=== PATIENT | male | born 1990 | race Caucasian/White ===

== ENCOUNTER 2017-08-31 19:22 | Observation (INO) ==
[2017-08-31 20:24] LABS: Bilirubin,Urine Negative (Negative); Blood,Urine Negative (Negative); Clarity,Urine Clear (Clear); Color,Urine Yellow (Yellow); Glucose,Urine (UA) Normal (Normal); Ketones,Urine Negative (Negative); Leukocyte Esterase,Urine Negative (Negative); Nitrite,Urine Negative (Negative); Protein,Urine Negative (Neg-Trace); Specific Gravity,Urine 1.013 (1.010-1.025); Urobilinogen,Urine Normal (Normal)
[2017-08-31 20:28] LABS: Basophils % 0.2 %; Hematocrit 43.6 % (37.5-50.1); Hemoglobin 14.9 g/dL (12.9-16.9); Immature Granulocytes % 0.3 % (0-4); Lymphocytes # 2.3 K/mcL (0.6-4.6); Lymphocytes % 16.6 %; Mean Corpuscular HGB Conc 34.2 g/dL (31.6-35.5); Mean Corpuscular Hemoglobin 28.1 pg (28.0-33.3); Mean Corpuscular Volume 82.3 fL (83.0-100.0); Mean Platelet Volume 9.9 fL (9.4-12.4); Monocytes # 0.9 K/mcL (0.0-1.3); Monocytes % 6.3 %; Neutrophils # 10.8 K/mcL (1.6-8.9); Platelet Count 225 K/mcL (140-400); Red Cell Distribution Width 12.6 % (11.5-14.5); Segmented Neutrophils % 76.6 %
[2017-08-31 20:42] LABS: Alanine Aminotransferase 81 Units/L (0-55); Albumin 4.6 g/dL (3.5-5.0); Albumin/Globulin Ratio 1.3 (1.1-2.2); Alkaline Phosphatase 49 Units/L (38-126); Aspartate Amino Transferase 68 Units/L (5-34); BUN/Creatinine Ratio 14 (6-26); Bilirubin,Direct 0.3 mg/dL (0.0-0.5); Bilirubin,Indirect 0.3 mg/dL (0.0-1.2); Bilirubin,Total 0.6 mg/dL (0.2-1.2); Blood Urea Nitrogen 11 mg/dL (8-26); Calcium 10.1 mg/dL (8.6-10.8); Carbon Dioxide 26 mEq/L (19-29); Chloride 103 mEq/L (98-109); Globulin 3.6 g/dL (2.4-3.5); Glucose 99 mg/dL (70-99); Lipase 10 Units/L (8-78); Osmolality,Calculated 285 (280-300); Potassium 4.2 mEq/L (3.5-4.5); Sodium 138 mEq/L (136-145); Total Protein 8.2 g/dL (6.0-8.3); eGFR For African Americans > 60 (> 60); eGFR For Non-African Americans > 60 (> 60)
--- NOTE | 2017-08-31 21:45 | Emergency Department Note ---
Disposition Clinical Impression: Hepatic steatosis Acute appendicitis Qualifiers: Acute appendicitis type: with localized peritonitis Qualified Code(s): K35.3 - Acute appendicitis with localized peritonitis Abdominal pain Qualifiers: Abdominal location: right lower quadrant Qualified Code(s): R10.31 - Right lower quadrant pain Disposition: Admitted As Inpatient Condition: Fair Time of Disposition: 01:59 Abdominal Pain HPI - General Chief Complaint: ED Abdominal Pain Stated Complaint: "Abd Pain/Sent from " Source: patient Nursing Notes Reviewed: Yes Vital Signs Reviewed: Yes - History of Present Illness HPI Narrative: Patient 27-year-old [place] male who complains of right lower quadrant abdominal pain that started 2 1 hours ago. Patient states the pain woke him from sleep. Patient states pain persisted at 6/10 sharp with radiation to umbilicus. Patient states he took a laxative earlier today and had several loose stools that are nonbloody. Patient states the pain continues to persist and is currently 2/10. Patient states his pain worsens when he touches abdomen. Patient admits anorexia, nausea without vomiting Patient admits to tobacco use but denies illicit drug use or alcohol use. Pain Scale: 8 - Related Data Home Medications Medication Instructions Recorded Confirmed No Known Home Drugs 08/31/17 08/31/17 Allergies Allergy/AdvReac Type Severity Reaction Status Date / Time No Known Allergies Allergy Verified 08/31/17 22:00 All systems ED: reviewed and negative except as stated. Review of Systems: As Per HPI Constitutional: Denies: fever, chills ENT ED: Denies: congestion Cardiovascular: Denies: chest pain, palpitations Respiratory: Denies: cough, dyspnea, wheezes Gastrointestinal: Reports: abdominal pain, nausea, diarrhea. Denies: vomiting Genitourinary: Denies: urgency, dysuria, frequency Musculoskeletal: Denies: back pain, neck pain Integumentary: Denies: rash Neurological: Denies: headache Psychiatric: Reports: anxiety Endocrine: Denies: fatigue Abdominal Pain PMH - Past Medical History Medical history: Reports: no medical history Male Surgical History: Reports: no surgical history Psychiatric history: Reports: no psych history - Social History Smoking status: Current some day smoker Alcohol use: Reports: none Drug use: Reports: none Physical Exam Vital Signs Temperature 98.2 F 08/31/17 20:01 Pulse Rate 88 08/31/17 20:01 Respiratory Rate 16 08/31/17 20:01 Blood Pressure 136/86 08/31/17 20:01 O2 Sat by Pulse Oximetry 97 08/31/17 20:01 Temperature 98.2 F 08/31/17 20:01 Pulse Rate 84 08/31/17 21:06 Respiratory Rate 16 08/31/17 21:06 Blood Pressure 147/98 08/31/17 21:06 O2 Sat by Pulse Oximetry 98 08/31/17 21:06 Oxygen Delivery Oxygen Delivery Room Air 27-year-old male who is alert and oriented 3 and does not appear to be in acute distress. Patient in bed trying to lay still. Patient is nondiaphoretic - General Limitations: no limitations General appearance: alert - Head Head exam: atraumatic, normocephalic - Eye Eye exam: Present: normal appearance - ENT ENT exam: normal exam, normal oropharynx, mucous membranes moist - Neck Neck exam: Present: normal inspection - Chest Chest inspection: Present: normal inspection, symmetric chest wall rise. Absent : tenderness, rash - Abdominal Exam Abdominal exam: Present: soft, tenderness, guarding, rebound, normal bowel sounds, tenderness at McBurney's Point. Absent: distention, rigidity - Extremities Exam Extremities exam: Present: normal inspection, full ROM, normal capillary refill. Absent: tenderness, pedal edema - Back Exam Back exam: Present: normal inspection, full ROM. Absent: tenderness, CVA tenderness (R), CVA tenderness (L) Course Vital Signs Temperature 98.2 F 08/31/17 20:01 Pulse Rate 88 08/31/17 20:01 Respiratory Rate 16 08/31/17 20:01 Blood Pressure 136/86 08/31/17 20:01 O2 Sat by Pulse Oximetry 97 08/31/17 20:01 Temperature 98.1 F 08/31/17 23:21 Pulse Rate 80 08/31/17 23:21 Respiratory Rate 15 08/31/17 23:21 Blood Pressure 133/77 08/31/17 23:21 O2 Sat by Pulse Oximetry 95 08/31/17 23:21 Oxygen Delivery Oxygen Delivery Room Air Abdominal Pain - MDM Narrative Medical decision making narrative: Patient presents with concerns for appendicitis with a positive Rovsing, right lower quadrant pain at McBurney's point, and rebound tenderness with guarding but has soft abdomen. CT abdomen and pelvis was ordered which shows Abdomen/Pelvis CT 08/31/17 21:11 IMPRESSION: Acute appendicitis. No definite findings of rupture. Trace free fluid in the pelvis, likely reactive. Hepatic steatosis. 3 mm nodule in the left lower lobe. In the absence of known primary malignancy, this is of doubtful clinical significance given the patient's age. Findings were discussed with Jacek Paige at 9:49 pm on 08/31/2017. D/ / Haseeb Ramirez MD / Haseeb Ramirez MD Interpreting Provider: Haseeb Ramirez MD Patient has elevated white count at 14.1 consulting surgery patient started on 2 g cefoxitin IV. Patient has mildly elevated LFTs in conjunction with hepatic steatosis. Dr. Patiño of Gen. surgery was consulted and is except the patient to his service. He recommends pain control but patient refuses any pain medication at this time. - Lab Data Lab results reviewed: Yes I reviewed the patient's lab results. Lab results narrative: Short CBC 08/31/17 Range/Units 20:18 WBC 14.1 H (4.3-11.1) K/mcL Hgb 14.9 (12.9-16.9) g/dL Hct 43.6 (37.5-50.1) % Plt Count 225 (140-400) K/mcL Neutrophils # 10.8 H (1.6-8.9) K/mcL BMP 08/31/17 Range/Units 20:18 Sodium 138 (136-145) mEq/L Potassium 4.2 (3.5-4.5) mEq/L Chloride 103 (98-109) mEq/L Carbon Dioxide 26 (19-29) mEq/L BUN 11 (8-26) mg/dL Creatinine 0.77 (0.72-1.25) mg/dL Glucose 99 (70-99) mg/dL Calcium 10.1 (8.6-10.8) mg/dL Liver Function 08/31/17 Range/Units 20:18 Total Bilirubin 0.6 (0.2-1.2) mg/dL Direct Bilirubin 0.3 (0.0-0.5) mg/dL AST 68 H (5-34) Units/L ALT 81 H (0-55) Units/L Alkaline Phosphatase 49 (38-126) Units/L Albumin 4.6 (3.5-5.0) g/dL Urine 08/31/17 Range/Units 19:31 Urine Color Yellow (Yellow) Urine Clarity Clear (Clear) Urine pH 6.0 (5.0-8.0) pH Units Ur Specific [place] 1.013 (1.010-1.025) Urine Protein Negative (Neg-Trace) mg/dL Urine Glucose (UA) Normal (Normal) mg/dL Result diagrams: 08/31/17 20:18 08/31/17 20:18 Lab Results 08/31/17 08/31/17 08/31/17 Range/Units 19:31 20:18 20:18 WBC 14.1 H (4.3-11.1) K/mcL RBC 5.30 (4.19-5.50) M/mcL Hgb 14.9 (12.9-16.9) g/dL Hct 43.6 (37.5-50.1) % MCV 82.3 L (83.0-100.0) fL MCH 28.1 (28.0-33.3) pg MCHC 34.2 (31.6-35.5) g/dL RDW 12.6 (11.5-14.5) % Plt Count 225 (140-400) K/mcL MPV 9.9 (9.4-12.4) fL Immature Gran % 0.3 (0-4) % Seg Neutrophils % 76.6 % Lymphocytes % 16.6 % Monocytes % 6.3 % Eosinophils % 0.0 % Basophils % 0.2 % Neutrophils # 10.8 H (1.6-8.9) K/mcL Lymphocytes # 2.3 (0.6-4.6) K/mcL Monocytes # 0.9 (0.0-1.3) K/mcL Eosinophils # 0.0 (0.0-0.6) K/mcL Basophils # 0.0 (0.0-0.2) K/mcL Sodium 138 (136-145) mEq/L Potassium 4.2 (3.5-4.5) mEq/L Chloride 103 (98-109) mEq/L Carbon Dioxide 26 (19-29) mEq/L BUN 11 (8-26) mg/dL Creatinine 0.77 (0.72-1.25) mg/dL Est GFR ( Amer) > 60 (> 60) Est GFR (Non-Af Amer) > 60 (> 60) BUN/Creatinine Ratio 14 (6-26) Glucose 99 (70-99) mg/dL Calculated Osmolality 285 (280-300) Calcium 10.1 (8.6-10.8) mg/dL Total Bilirubin 0.6 (0.2-1.2) mg/dL Direct Bilirubin 0.3 (0.0-0.5) mg/dL Indirect Bilirubin 0.3 (0.0-1.2) mg/dL AST 68 H (5-34) Units/L ALT 81 H (0-55) Units/L Alkaline Phosphatase 49 (38-126) Units/L Serum Total Protein 8.2 (6.0-8.3) g/dL Albumin 4.6 (3.5-5.0) g/dL Globulin 3.6 H (2.4-3.5) g/dL Albumin/Globulin Ratio 1.3 (1.1-2.2) Lipase 10 (8-78) Units/L Urine Color Yellow (Yellow) Urine Clarity Clear (Clear) Urine pH 6.0 (5.0-8.0) pH Units Ur Specific [place] 1.013 (1.010-1.025) Urine Protein Negative (Neg-Trace) mg/dL Urine Glucose (UA) Normal (Normal) mg/dL Urine Ketones Negative (Negative) mg/dL Urine Blood Negative (Negative) Urine Nitrite Negative (Negative) Urine Bilirubin Negative (Negative) Urine Urobilinogen Normal (Normal) mg/dL Ur Leukocyte Esterase Negative (Negative) Ur Culture Indicated? NO (NO) - Radiology Data Radiology results reviewed: Yes I reviewed the patient's radiology results. Abdomen/Pelvis CT 08/31/17 21:11 IMPRESSION: Acute appendicitis. No definite findings of rupture. Trace free fluid in the pelvis, likely reactive. Hepatic steatosis. 3 mm nodule in the left lower lobe. In the absence of known primary malignancy, this is of doubtful clinical significance given the patient's age. Findings were discussed with Jacek Paige at 9:49 pm on 08/31/2017. D/ / Haseeb Ramirez MD / Haseeb Ramirez MD Interpreting Provider: Haseeb Ramirez MD Attestation Statement - Attestation Attestation: I examined this patient and my medical decision-making was reviewed with the Resident Physician. I agree with the documented findings, disposition and treatment plan as described except to the extent set forth below. Stable appy accepted for admission by surgery.
[2017-08-31] MEDS ORDERED: cefOXitin 2,000 MG in D5% in Water (Mini-Bag+) 100 ML IVPB ONE (21:51)
[2017-08-31] MEDS ORDERED: 0.9 % Sodium Chloride 1,000 ML IVC SCH (22:30)
[2017-08-31] MEDS ORDERED: cefOXitin 2,000 MG in Water for inj. (sterile) 10 ML IVP ONE (23:00)
[2017-09-01] MEDS ORDERED: Ondansetron 4 MG/2 ML VIAL IVP PRN (00:32)
[2017-09-01] MEDS: Piperacillin/Tazobactam 3.375 GM/200 ML BAG IVPB SCH ×2 (01:42→09:21)
--- NOTE | 2017-09-01 07:27 | General Surg History&Physical ---
Date of Encounter: 09/01/17 Time of Encounter: 06:00 Assessment and Plan (1) Acute appendicitis Current Visit: Yes Status: Acute The assessment and plan as outlined above was discussed with the patient and/or family members who expressed understanding and agreement. All questions were answered. Exam is consistent acute appendicitis. Label plan for surgical intervention ( laparoscopic appendectomy) in the next 24 to 48 hours. The recommendations, risks, and benefits of the procedure were reviewed with the patient, his , and his parents. He is agreeable to proceed. His surgical consent has been placed in his hard chart. NPO IV fluids continued discomfort management and G.I. prophylaxis continue DVT prophylaxis incentive spirometry Zosyn Qualifiers: Acute appendicitis type: with localized peritonitis Qualified Code(s): K35.3 - Acute appendicitis with localized peritonitis (2) Hepatic steatosis Current Visit: Yes Status: Acute The assessment and plan as outlined above was discussed with the patient and/or family members who expressed understanding and agreement. All questions were answered. Likely fatty liver. He will need follow-up as an outpatient with PCP for repeat liver exams and ultrasound. (3) Incidental lung nodule Current Visit: Yes Status: Acute The assessment and plan as outlined above was discussed with the patient and/or family members who expressed understanding and agreement. All questions were answered. Given absence of primary liquid that lesion and patients age this is likely a benign finding. He will be recommended to follow up with a family physician. History of Present Illness Chief complaint: RLQ pain HPI: Subjective information obtained via patient interview. His parents and are present. Also obtained via chart review. Mr. Monterroso is a 27 year old male who denies any significant past medical history, denies any surgical history, reports a family history of his mother (who is living) has type II diabetes, his father and siblings do not have any medical history. He denies alcohol use, denies cigarette smoking ( however per chart review he is an occasional smoker), denies illicit drug use. He presented on 08/31/2017 for a approximately 30 hour history of right lower quadrant pain. He reports feeling fevered and chilled, but did not take his temperature. He endorses anorexia. He denies nausea, vomiting, diarrhea, constipation, or changes in bowel habits. He reports his discomfort is 8/10, localized to the right lower quadrant, aggravated by movement or touching the area, and has no alleviating factors. This is his 1st occurrence of this discomfort. He denies headache, dizziness, syncope, near syncope, chest pain, shortness of breath, urinary signs or symptoms, or generalized weakness. His hospital course thus far has included a CT scan of the abdomen and pelvis which revealed no evidence of bowel obstruction, dilated appendix measuring up to 12 mm with adjacent inflammatory stranding consistent with acute appendicitis and without definite perforation, mildly enlarged mesenteric nodes which are likely reactive, trace free fluid in the pelvis likely reactive, hepatic steatosis, incidental finding of the 3 mm nodule on the left lower lobe of the lung. Noted in the absence of primary malignancy this is doubtful of clinical significance given the patient's age. Per the ER chart, he has leukocytosis with a white blood cell count of 14.1, his BMP is unremarkable, his AST is elevated at 68 and ALT is elevated at 81 Result diagrams: 08/31/17 20:18 Lab Results 08/31/17 08/31/17 08/31/17 Range/Units 19:31 20:18 20:18 WBC 14.1 H (4.3-11.1) K/mcL RBC 5.30 (4.19-5.50) M/mcL Hgb 14.9 (12.9-16.9) g/dL Hct 43.6 (37.5-50.1) % MCV 82.3 L (83.0-100.0) fL MCH 28.1 (28.0-33.3) pg MCHC 34.2 (31.6-35.5) g/dL RDW 12.6 (11.5-14.5) % Plt Count 225 (140-400) K/mcL MPV 9.9 (9.4-12.4) fL Immature Gran % 0.3 (0-4) % Seg Neutrophils % 76.6 % Lymphocytes % 16.6 % Monocytes % 6.3 % Eosinophils % 0.0 % Basophils % 0.2 % Neutrophils # 10.8 H (1.6-8.9) K/mcL Lymphocytes # 2.3 (0.6-4.6) K/mcL Monocytes # 0.9 (0.0-1.3) K/mcL Eosinophils # 0.0 (0.0-0.6) K/mcL Basophils # 0.0 (0.0-0.2) K/mcL Sodium 138 (136-145) mEq/L Potassium 4.2 (3.5-4.5) mEq/L Chloride 103 (98-109) mEq/L Carbon Dioxide 26 (19-29) mEq/L BUN 11 (8-26) mg/dL Creatinine 0.77 (0.72-1.25) mg/dL Est GFR ( Amer) > 60 (> 60) Est GFR (Non-Af Amer) > 60 (> 60) BUN/Creatinine Ratio 14 (6-26) Glucose 99 (70-99) mg/dL Calculated Osmolality 285 (280-300) Calcium 10.1 (8.6-10.8) mg/dL Total Bilirubin 0.6 (0.2-1.2) mg/dL Direct Bilirubin 0.3 (0.0-0.5) mg/dL Indirect Bilirubin 0.3 (0.0-1.2) mg/dL AST 68 H (5-34) Units/L ALT 81 H (0-55) Units/L Alkaline Phosphatase 49 (38-126) Units/L Serum Total Protein 8.2 (6.0-8.3) g/dL Albumin 4.6 (3.5-5.0) g/dL Globulin 3.6 H (2.4-3.5) g/dL Albumin/Globulin Ratio 1.3 (1.1-2.2) Lipase 10 (8-78) Units/L Urine Color Yellow (Yellow) Urine Clarity Clear (Clear) Urine pH 6.0 (5.0-8.0) pH Units Ur Specific [place] 1.013 (1.010-1.025) Urine Protein Negative (Neg-Trace) mg/dL Urine Glucose (UA) Normal (Normal) mg/dL Urine Ketones Negative (Negative) mg/dL Urine Blood Negative (Negative) Urine Nitrite Negative (Negative) Urine Bilirubin Negative (Negative) Urine Urobilinogen Normal (Normal) mg/dL Ur Leukocyte Esterase Negative (Negative) Ur Culture Indicated? NO (NO) Past Med Surg Social Fam HX - Past Medical History Source: patient Medical history: no medical history Psychiatric history: no psych history - Past Surgical History Surgical History: no surgical history - Social History Smoking Status: Current some day smoker Smokeless Tobacco Status: No Alcohol use: none Drug use: none Occupational status: employed Current living situation: Home - Independent Activity Level: Independent ambulation Recent Out of Country Travel Within the Last 8 Weeks: No Exposure or Possible Exposure to Illness During Travel: No - Family History Mother Adopted: No Race: Family Member Ethnicity: Non- Living Status: Still Living Hx Family Cardiac Disorders: No Hx Family Respiratory Disorders: No Hx Family Cancer: No Hx Family GI Disorders: No Hx Family Genitourinary Disorders: No Hx Family Endocrine Disorder: Yes (type II diabetes) Hx Family Musculoskeletal Disorders: No Hx Family Neuromuscular Disorders: No Hx Family Neurologic Disorders: No Hx Family HEENT Disorders: No Hx Family Autoimmune Disorders: No Hx Family Reproductive Disorders: No Hx Family Psychosocial Disorders: No Hx Family Medical Disorders: No Medications and Allergies No Known Home Drugs 08/31/17 [History] 3 Allergy/AdvReac Type Severity Reaction Status Date / Time No Known Allergies Allergy Verified 08/31/17 22:00 Review of Systems All systems PM: reviewed and no additional remarkable complaints except as stated All systems PM: A 10-system review of systems was performed and is negative for pertinent findings except as documented above in the HPI. General Surgery Exam Initial Vital Signs Temp Pulse Resp BP Pulse Ox 98.2 F 88 16 136/86 97 08/31/17 20:01 08/31/17 20:01 08/31/17 20:01 08/31/17 20:01 08/31/17 20:01 - Additional Findings VITAL SIGNS: Reviewed. GENERAL: In no apparent distress. HEENT: Atraumatic, normocephalic, normal occular movements, hearing grossly intact. Oropharynx WNL NECK: No adenopathy, no JVD. CHEST: Chest with clear breath sounds bilaterally. No wheezes, rales, or rhonchi. CARDIAC: Regular rate and rhythm. S1 and S2, without murmurs, gallops, or rubs. VASCULAR: No Edema. Peripheral pulses normal and equal in all extremities. ABDOMEN: No signs of trauma or bleeding noted. Bowel sounds are active in all 4 quadrants. Soft, tender to moderate palpation RLQ. Positive McBurney sign. Non-peritoneal. MUSCULOSKELETAL: No focal deficits noted. NEUROLOGIC EXAM: Alert and oriented x 3. No focal sensory or strength deficits. Speech normal. Follows commands. PSYCHIATRIC: Pleasant affect. Mood normal. SKIN: No rash or lesions. Results - Labs 08/31/17 20:18 11/28/17 20:18 Abnormal lab results WBC 14.1 K/mcL (4.3-11.1) H 08/31/17 20:18 MCV 82.3 fL (83.0-100.0) L 08/31/17 20:18 Neutrophils # 10.8 K/mcL (1.6-8.9) H 08/31/17 20:18 AST 68 Units/L (5-34) H 08/31/17 20:18 ALT 81 Units/L (0-55) H 08/31/17 20:18 Globulin 3.6 g/dL (2.4-3.5) H 08/31/17 20:18 All other labs normal. - Imaging CT scan - abdomen: report reviewed CT scan - pelvis: report reviewed Additional studies: Abdomen/Pelvis CT 08/31/17 21:11 IMPRESSION: Acute appendicitis. No definite findings of rupture. Trace free fluid in the pelvis, likely reactive. Hepatic steatosis. 3 mm nodule in the left lower lobe. In the absence of known primary malignancy, this is of doubtful clinical significance given the patient's age. Findings were discussed with Jacek Paige at 9:49 pm on 08/31/2017. D/ / Haseeb Ramirez MD / Haseeb Ramirez MD Interpreting Provider: Haseeb Ramirez MD
[2017-09-01] MEDS ORDERED: *HR* Metoprolol 5 MG/5 ML VIAL IVP PRN (07:45)
[2017-09-01] MEDS ORDERED: *HR* Promethazine 25 MG/ML VIAL IVP PRN ×2 (07:45→11:55)
[2017-09-01] MEDS ORDERED: Naloxone 0.4 MG/ML INJ IVP PRN (07:45)
[2017-09-01] MEDS: *HR* HYDROmorphone (PF) 1 MG/ML SYRINGE IVP PRN ×2 (07:52→14:04)
--- NOTE | 2017-09-01 08:31 | Anesthesia Evaluation PreOp ---
Date of Encounter: 09/01/17 Time of Encounter: 10:39 - Past History Planned Operation: Laparoscopic Appendectomy Pulmonary History: Smoker (2 years) PAD TUFTER History: Denies Any Significant HX Other Medical History: Denies Any Significant HX Anesthesia History: Past Anesthesia (no prior surgery) Alcohol Use: rarely Drug use: none Medications and Allergies No Known Home Drugs 08/31/17 [History] 3 Allergy/AdvReac Type Severity Reaction Status Date / Time No Known Allergies Allergy Verified 08/31/17 22:00 - Meds/Allergy Pre-op Review Medications Reviewed: Yes Allergies Reviewed: Yes Beta Blockers on Current Med List: No Anesthesia Results - Labs 08/31/17 20:18 08/31/17 20:18 Anesthesia Exam Vital Signs/O2 Sat, Most Current Temp Pulse Resp BP Pulse Ox 98.1 F 82 14 136/78 94 09/01/17 06:59 09/01/17 06:59 09/01/17 06:59 09/01/17 06:59 09/01/17 06:59 Height: 5'5''/1.65 m Weight: 203 lbs/92.4 kg NPO (# of Hours): 8 Pain Scale: 0 Pain Scale Used: Numeric (1 - 10) - HEENT Pupil (Motor): EOMI Mallampati: II Teeth: Normal Oral Opening: Greater than 3 - PAD TUFTER LOC: Oriented PAD TUFTER Motor: Normal RUE, Normal LUE, Normal RLE, Normal LLE, Normal Face PAD TUFTER Sensory: Normal: RUE, LUE, RLE, LLE, Face - Cardiac Rhythm: Regular Murmur: None - Pulmonary Breath Sounds: bilateral Clear Respiratory Effort: Symmetrical Anesthesia Assess/Plan ASA Score: 2 Modified Jeffrey Scale for Level of Consciousness: Cooperative, oriented, and tranquil Anesthetic Plan: General Monitoring Plan: Standard Monitors Recovery Plan: PACU
[2017-09-01] MEDS ORDERED: Pantoprazole 40 MG VIAL IVP SCH (09:00)
[2017-09-01] MEDS ORDERED: *HR* FentaNYL (PF) 100 MCG/2 ML VIAL ONE (10:15)
[2017-09-01] MEDS ORDERED: *HR* Midazolam HCl 2 MG/2 ML VIAL ONE (10:15)
[2017-09-01] MEDS ORDERED: *HR* Propofol 200 MG/20 ML VIAL IVP ONE (10:16)
[2017-09-01] MEDS ORDERED: Lidocaine -MPF 2% 2 ML VIAL ONE (10:17)
[2017-09-01] MEDS ORDERED: *HR* Rocuronium Bromide 50 MG/5 ML VIAL ONE (10:18)
[2017-09-01] MEDS ORDERED: Lidocaine -MPF 4% 5 ML AMPUL ONE (10:18)
[2017-09-01] MEDS: Ipratropium/Albuterol Neb 3 ML IH SCH ×2 (10:50→11:47)
[2017-09-01] MEDS ORDERED: CefOXitin 2,000 MG VIAL ONE (11:04)
[2017-09-01] MEDS ORDERED: cefOXitin 2,000 MG in Water for inj. (sterile) 10 ML IVP ONE (11:10)
[2017-09-01] MEDS ORDERED: Dexamethasone 4 MG/ML VIAL ONE (11:23)
[2017-09-01] MEDS ORDERED: Ondansetron 4 MG/2 ML VIAL ONE (11:23)
[2017-09-01] MEDS ORDERED: Ketorolac 30 MG/ML VIAL ONE (11:29)
[2017-09-01] MEDS ORDERED: Neostigmine Methylsulfate 3 MG/3 ML SYRINGE ONE (11:36)
[2017-09-01] MEDS ORDERED: Ipratropium/Albuterol Neb 3 ML ONE (11:52)
[2017-09-01] MEDS ORDERED: *HR* HYDROmorphone (PF) 1 MG/ML SYRINGE IVP PRN (11:55)
[2017-09-01] MEDS ORDERED: Ketorolac 15 MG/ML VIAL IVP SCH (12:00)
--- NOTE | 2017-09-01 12:24 | Anesthesia Evaluation Post Op ---
Date of Encounter: 09/01/17 Time of Encounter: 12:30 - Vital Signs Vital Signs: Vital Signs/O2 Sat/Glucose, Most Current Temp Pulse Resp BP Pulse Ox 09/01/17 12:10 67 17 139/86 97 09/01/17 12:00 68 15 133/75 97 09/01/17 11:50 98.5 F 62 18 141/83 100 - Lungs Lungs: Clear Ascult./Percussion - Airway Airway: Non-obstructed - Cardiovascular Regular Rate - Mental Status Mental Status: Alert & Oriented, Answers Appropriately - Pain Pain Scale: 1 - Nausea Vomiting Nausea Vomiting: Not Present - Hydration Hydration: Ice chips - Discharge PostOp Status: Transfer Patient to floor
[2017-09-01] MEDS ORDERED: 0.9 % Sodium Chloride 1,000 ML IVC SCH (13:53)
--- NOTE | 2017-09-01 16:12 | Discharge Summary ---
Date of Encounter: 09/01/17 Time of Encounter: 16:10 - Discharge Diagnosis (1) Acute appendicitis Priority: Primary Status: Acute Qualifiers: Acute appendicitis type: with localized peritonitis Qualified Code(s): K35.3 - Acute appendicitis with localized peritonitis (2) Incidental lung nodule Priority: Secondary Status: Acute - Discharge Medications Prescriptions: OxyCODONE/APAP 5/325 [Percocet 5/325 MG] 1 each PO Q6HR PRN #20 tablet PRN Reason: Pain Home Medications: OxyCODONE/APAP 5/325 [Percocet 5/325 MG] 1 each PO Q6HR PRN #20 tablet 09/01/17 [Rx] Allergies/Adverse Reactions: 3 Allergy/AdvReac Type Severity Reaction Status Date / Time No Known Allergies Allergy Verified 08/31/17 22:00 General Surgery Exam Initial Vital Signs Temp Pulse Resp BP Pulse Ox 98.2 F 88 16 136/86 97 08/31/17 20:01 08/31/17 20:01 08/31/17 20:01 08/31/17 20:01 08/31/17 20:01 Date of admission: 08/31/17 22:41 Primary care physician: PCP NONE Discharging clinician: Micah Kiran) Anticipated date of discharge: 09/01/17 - Patient Status Disposition: Home, Self-Care Condition: Good Functional capacity at discharge: independent ambulation Overall status at discharge: patient is progressing back to baseline - Discharge Instructions Follow Up With: NONE,PCP [Primary Care Provider] - Karen Vee LAP MAKER [Advanced Practice Nurse] - 09/14/17 3:20 pm (Surgery follow -up) Additional Instructions: #1 may shower 09/02/17, no tub bath for 2 weeks #2 wash incisions with soap and water and pat dry daily #3 no lifting, pushing, pulling more than 15 pounds for the next 2 weeks #4 no driving until off narcotics for 24 hours and able to safely react in the car #5 may climb stairs - Diet and Activity Activity: increase activity as tolerated Diet: advance to your usual diet - Hospital Course Hospital course: Mr. Monterroso is a 27 year old male presented to the hospital with complaints of abdominal pain. He was found to have evidence of acute appendicitis. He was started on IV antibiotic therapy and supportive measures. He was taken to the operating room for laparoscopic appendectomy with Dr. Patiño. There were no complications noted. We will begin discharge planning to home when the patient meets discharge criteria including: Vital signs are stable and afebrile, tolerating liquids without nausea or vomiting, postoperative pain is well controlled, voiding and ambulate without difficulty. We will plan for outpatient follow-up in the next 10-14 days. - Time Spent with Patient Total time spent providing and/or coordinating discharge services: Less than 30 minutes - Attending Attestation For this encounter, I have reviewed the PROGRAM DIRECTOR/TRAFFIC DIRECTOR or PA documentation, treatment plan, and medical decision making; and I have had face to face time with this patient.
[2017-09-01 16:17] VITALS: BP 137/78
== END 2017-09-01 17:12 | disposition home or self-care (01) ==
LOC: EMEROO 19:22 → 3ANU 19:22
PROVIDERS: ADMIT Surgery; ATTEND Surgery